=== PATIENT | male | born 1995 | race Two or more races ===

== ENCOUNTER 2020-01-30 15:24 | Emergency (ER) | payer SELFPAY ==
[~2020-01-30] VITALS: Ht 160 cm; Wt 79.4 kg
[2020-01-30 15:49] VITALS: BP 153/94
[2020-01-30] MEDS ORDERED: diphenhdrAMINE HCL 50 MG/1 ML VL IV ONE (16:15)
[2020-01-30] MEDS ORDERED: diphenhdrAMINE HCL 50 MG/1 ML VL IM ONE (16:30)
== END 2020-01-30 16:47 | disposition home or self-care (01) ==
LOC: ER 15:24
DX: F41.9 Anxiety disorder, unspecified (principal); F14.10 Cocaine abuse, uncomplicated
CPT/HCPCS: 96372; 99283; J1200